=== PATIENT | male | born 1975 ===

== ENCOUNTER 2018-03-22 08:30 | Emergency (ER) | payer OTHER ==
[2018-03-22 08:51] VITALS: RESP 18
--- NOTE | 2018-03-22 09:18 | C.PDOC ---
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 Patient reports pain and swelling to the right ankle and states that he is unable to bear weight on his ankle due to pain. Time Seen by Provider: 03/22/18 09:06 Chief Complaint (Nursing): Lower Extremity Problem/Injury History Per: Patient History/Exam Limitations: no limitations Onset/Duration Of Symptoms: Hrs Current Symptoms Are (Timing): Still Present - Ankle/Foot Description Of Injury: Twisted (inverted) Currently Unable To: Bear Weight Past Medical History Reviewed: Historical Data, Nursing Documentation, Vital Signs Vital Signs: Last Vital Signs Temp 98.1 F 03/22/18 08:46 Pulse 69 03/22/18 08:46 Resp 18 03/22/18 08:46 BP 171/90 H 03/22/18 08:46 Pulse Ox 98 03/22/18 08:46 - Medical History PMH: No Chronic Diseases Surgical History: No Surg Hx Family History: States: No Known Family Hx - Social History Hx Alcohol Use: Yes Hx Substance Use: No - Immunization History Hx Tetanus Toxoid Vaccination: No Hx Influenza Vaccination: No Hx Pneumococcal Vaccination: No Review Of Systems Except As Marked, All Systems Reviewed And Found Negative. Musculoskeletal: Positive for: Foot Pain (right ankle) Neurological: Negative for: Weakness, Numbness Physical Exam - Physical Exam Appears: Well, Non-toxic, No Acute Distress Skin: Normal Color, Warm, Dry Head: Atraumatic, Normacephalic Eye(s): bilateral: Normal Inspection Chest: Symmetrical Extremity: Tenderness (to the right lateral malleolus), Swelling (to the right lateral malleolus) Pulses: Left Dorsalis Pedis: Normal, Right Dorsalis Pedis: Normal Neurological/Psych: Oriented x3 ED Course And Treatment O2 Sat by Pulse Oximetry: 98 (RA) Pulse Ox Interpretation: Normal - Other Rad XR Right Ankle X-Ray: Viewed By Me, Read By Radiologist Interpretation: IMPRESSION: Soft tissue swelling. No acute displaced fracture or dislocation identified. If symptoms persist or if there is clinical concern, x-ray follow-up in 7-10 days should be considered. Medical Decision Making Medical Decision Making: Plan: Motrin 600mg PO Tylenol 975mg PO XR Right Ankle No fracture seen on right ankle X-ray. Jk wrap applied and patient given crutches, clear for discharge. Disposition Counseled Patient/Family Regarding: Studies Performed, Diagnosis, Need For Followup, Rx Given - Disposition Referrals: Nehemiah Pickett MD [Staff Provider] - Disposition: HOME/ ROUTINE Disposition Time: 10:32 Condition: STABLE Prescriptions: Ibuprofen [Motrin] 600 mg PO TID #15 tab Instructions: Ankle Sprain (DC) Forms: Gen Discharge Inst Albanian, [facility] [employer] [facility] (Albanian), Work Excuse - Clinical Impression Clinical Impression: Right ankle sprain - Scribe Statement The provider has reviewed the documentation as recorded by the Scribe (Dale Phelps) Provider Attestation: All medical record entries made by the Scribe were at my direction and per sonally dictated by me. I have reviewed the chart and agree that the record accurately reflects my personal performance of the history, physical exam, medical decision making, and the department course for this patient. I have also personally directed, reviewed, and agree with the discharge instructions and disposition.
--- NOTE | 2018-03-22 10:23 | RAD ---
PROCEDURE: Right Ankle Radiographs. HISTORY: inversion COMPARISON: None FINDINGS: BONES: No acute displaced fracture. JOINTS: No dislocation. SOFT TISSUES: Soft tissue swelling. No evidence of radiopaque foreign body. OTHER FINDINGS: None. IMPRESSION: Soft tissue swelling. No acute displaced fracture or dislocation identified. If symptoms persist or if there is clinical concern, x-ray follow-up in 7-10 days should be considered.
[2018-03-22 10:29] VITALS: BP 154/92; PULSE 62; TEMP 97.4
[2018-03-22 10:36] VITALS: O2SAT 98
== END 2018-03-22 10:59 | disposition home or self-care (01) ==
LOC: C.ER 08:30
DX: S93.401A Sprain of unspecified ligament of right ankle, initial encounter (principal); X58.XXXA Exposure to other specified factors, initial encounter; Y92.69 Other specified industrial and construction area as the place of occurrence of the external cause; Y99.0 Civilian activity done for income or pay